=== PATIENT | female | born 1955 | race Caucasian/White ===

== ENCOUNTER 2023-12-19 21:50 | Emergency (ER) | payer SELFPAY ==
[2023-12-19 22:00] VITALS: BP 156/75; PULSE 75; RESP 18; TEMP 98; O2SAT 98
== END 2023-12-19 22:00 | disposition left against medical advice (07) ==
LOC: MED 21:50
DX: R07.89 Other chest pain (principal); I10 Essential (primary) hypertension; Z53.21 Procedure and treatment not carried out due to patient leaving prior to being seen by health care provider